=== PATIENT | female | born 1945 | race Two or more races ===

== ENCOUNTER 2024-04-12 14:13 | Emergency (ER) | payer OTHER ==
[~2024-04-12] VITALS: Ht 162.6 cm; Wt 68.0 kg
[2024-04-12] MEDS ORDERED: RAZADYNE ER16 MG PO (14:44)
[2024-04-12] MEDS ORDERED: COZAAR50 MG PO (14:45)
[2024-04-12] MEDS ORDERED: XARELTO20 MG (14:45)
[2024-04-12] MEDS ORDERED: CARVEDILOL ER40 MG (14:45)
[2024-04-12 16:21] LABS: PH,URINE 5.5 (5.0-8.0); URINE APPEARANCE Turbid; URINE BILIRRUBIN Negative (NEGATIVE); URINE BLOOD NHT; URINE COLOR Yellow; URINE GLUCOSE Negative (NEGATIVE); URINE LEUKOCYTE Large; URINE NITRATE Negative; URINE PROTEIN 30 (NEGATIVE); URINE UROBILINOGEN 0.2 E.U./dl
[2024-04-12 16:22] LABS: URINE RBC 30.6 uL (0.0-20.8); URINE WBC 391.4 uL (0.0-23.2)
[2024-04-12 16:28] LABS: HEMATOCRIT 37.9 % (36.0-45.00); HEMOGLOBIN 12.7 g/dL (12.0-15.00); MEAN CELL VOLUME 83.9 fL (80.00-100.00); MEAN CORPUSCULAR HEMOGLOBIN 28.1 pg (27.00-32.0); MEAN CORPUSCULAR HGB CONC 33.5 g/dl (32.0-36.0); RED BLOOD COUNT 4.52 M/uL (4.00-6.00)
[2024-04-12 16:31] LABS: URINE BACTERIA > 9821.5 uL (0.0-1933); URINE EPITHELIAL CELLS > 201.7 uL (0.0-38.8)
[2024-04-12 16:42] LABS: ALBUMIN 3.6 gm/dL (3.4-5.0); BILIRUBIN TOTAL 0.39 mg/dL (0.3-1.2); CALCIUM 9.6 mg/dL (8.5-10.1); CREATININE SERUM 0.81 mg/dL (0.55-1.02); GFR 68.21; GLOBULINA 3.9 G/DL (2.4-3.5); POTASSIUM 4.18 mEq/L (3.5-5.1); TOTAL PROTEIN 7.5 gm/dL (6.4-8.2)
[2024-04-12 16:58] LABS: PLATELET COUNT 95 K/uL (150-450)
== END 2024-04-12 18:43 | disposition home or self-care (01) ==
LOC: ER 14:14
PROVIDERS: Emergency Medicine
DX: U07.1 COVID-19 (principal); S00.93XA Contusion of unspecified part of head, initial encounter; W19.XXXA Unspecified fall, initial encounter; Y93.9 Activity, unspecified; Y92.018 Other place in single-family (private) house as the place of occurrence of the external cause; Y99.9 Unspecified external cause status; G30.9 Alzheimer's disease, unspecified; F02.80 Dementia in other diseases classified elsewhere, unspecified severity, without behavioral disturbance, psychotic disturbance, mood disturbance, and anxiety

== ENCOUNTER 2024-10-13 20:16 | Emergency (ER) | payer OTHER ==
[~2024-10-13] VITALS: Ht 167.6 cm; Wt 63.5 kg
[~2024-10-13 20:16] MED LIST: CARVEDILOL ER40 MG; COZAAR50 MG PO; RAZADYNE ER16 MG PO; XARELTO20 MG
[2024-10-13 20:19] VITALS: BP 141/73; O2SAT 95
[2024-10-13] MEDS ORDERED: 0.9 % SODIUM CHLORIDE 1,000 ML IV SCH (20:45)
[2024-10-13 21:23] LABS: HEMATOCRIT 35.2 % (36.0-45.00); HEMOGLOBIN 11.7 g/dL (12.0-15.00); MEAN CELL VOLUME 90.1 fL (80.00-100.00); MEAN CORPUSCULAR HEMOGLOBIN 29.9 pg (27.00-32.0); MEAN CORPUSCULAR HGB CONC 33.1 g/dl (32.0-36.0); RED BLOOD COUNT 3.91 M/uL (4.00-6.00); RED CELL DISTRIBUTION WIDTH 15.7 % (11.5-14.5)
[2024-10-13 21:25] LABS: PLATELET COUNT 104 K/uL (150-450)
[2024-10-13 21:53] LABS: INR 1.06; PARTIAL THROMBOPLASTIN TIME 25.6 SECONDS (22.0-34.0); PROTHROMBIN TIME 11.5 SECONDS (9.0-11.5)
[2024-10-13 22:16] LABS: ALBUMIN 3.4 gm/dL (3.4-5.0); ALKALINE PHOSPHATASE 64 U/L (50-136); ALT/SGPT 21 U/L (12-78); ANION GAP 7 (10.0-20.0); AST/SGOT 17 U/L (15-37); BILIRUBIN TOTAL 0.39 mg/dL (0.3-1.2); BLOOD UREA NITROGEN 25 mg/dL (7-18); BUN CREA RATIO 30 (7.0-25.0); CARBON DIOXIDE 30 mEq/L (21-32); CHLORIDE 111 mmol/L (98-107); CREATININE SERUM 0.82 mg/dL (0.55-1.02); GFR 67.07; GLUCOSE FASTING 95 mg/dL (65-100); OSMOLALITY SERUM 291 MOSM/KG (275-295); POTASSIUM 4.32 mEq/L (3.5-5.1); SODIUM 144 mmol/L (136-145); TOTAL PROTEIN 6.4 gm/dL (6.4-8.2); TSH 0.979 uIU/mL (0.358-3.74)
[2024-10-13 22:17] LABS: C-REACTIVE PROTEIN < 0.29 MG/DL (0.00-0.29)
[2024-10-13 22:29] LABS: ERYTHROCYTE SEDIMENTATION RATE 18 mm/hr
[2024-10-13 22:49] LABS: ABG PH 7.423 (7.35-7.45); ABG PO2 88.7 mmHg (80-100); ABG pCO2 42.2 mmHg (35-45); BASE EXCESS 2.3 mmol/l; Tco2 28.3 mmol/l; o2 21 %
[2024-10-13 22:50] LABS: allen test SATISFACTORY; puncture site RADIAL LEFT
[2024-10-13 22:56] LABS: SaO2 97.1 %
[2024-10-14 01:04] LABS: PH,URINE 6.5 (5.0-8.0); URINE APPEARANCE Clear; URINE BILIRRUBIN Negative (NEGATIVE); URINE BLOOD Negative; URINE COLOR Yellow; URINE GLUCOSE Negative (NEGATIVE); URINE KETONE Negative (NEGATIVE); URINE LEUKOCYTE Small; URINE NITRATE Negative; URINE PROTEIN Negative (NEGATIVE); URINE UROBILINOGEN 0.2 E.U./dl
[2024-10-14 01:05] LABS: URINE BACTERIA 1894.6 uL (0.0-1933); URINE CAST 0.29 uL (0.0-1.40); URINE EPITHELIAL CELLS 16.1 uL (0.0-38.8); URINE RBC 6.9 uL (0.0-20.8); URINE WBC 45.5 uL (0.0-23.2)
[2024-10-14] MEDS ORDERED: PROTECT PLUS S1 EACH PO (02:56)
== END 2024-10-14 03:14 ==
LOC: ER 20:16
PROVIDERS: General Practice
DX: R53.1 Weakness (principal); Z20.822 Contact with and (suspected) exposure to COVID-19
CPT/HCPCS: 36415; 70460; 71045; 71250; 82803; 93005; 96365; 96366; 99284; J7030; Q9965